=== PATIENT | female | born 1930 | race Caucasian/White ===

== ENCOUNTER 2018-11-26 15:39 | Emergency (ER) | payer MEDICARE, OTHER ==
[~2018-11-26] VITALS: Ht 167.6 cm; Wt 77.1 kg
[~2018-11-26 15:39] MED LIST: ASPI325B; ATEN50 PO; BENADRYL; CEFD300 PO; DOXY100 PO; LOSARTAN-HCTZ1 EAC1 PO; LOSHYD; LOVA40; METF500C PO; METF850; METO25ER PO; METO50ER; MINERAL; MINOXIDIL 5%; NAPR220; NEBI10 PO; NITR.4SL SL; ROBITUSSIN COUGH; TOCO400; TORSE20 PO; [UNRECOGNIZED DRUG - OTHER]; [UNRECOGNIZED DRUG - REMARK]
[2018-11-26] MEDS ORDERED: Cleocin HCl300 MG PO (16:52)
[2018-11-26] MEDS ORDERED: Percocet 5-3251 EACH PO (16:52)
== END 2018-11-26 17:25 | disposition home or self-care (01) ==
LOC: ER 15:39
DX: K04.7 Periapical abscess without sinus (principal); Z88.0 Allergy status to penicillin; Z88.8 Allergy status to other drugs, medicaments and biological substances; Z79.899 Other long term (current) drug therapy; Z79.84 Long term (current) use of oral hypoglycemic drugs; I10 Essential (primary) hypertension; E11.9 Type 2 diabetes mellitus without complications; F32.9 Major depressive disorder, single episode, unspecified; Z85.3 Personal history of malignant neoplasm of breast
CPT/HCPCS: 99283

== ENCOUNTER 2018-11-27 00:48 | Inpatient (IN) | payer MEDICARE, OTHER ==
[~2018-11-27] VITALS: Ht 167.6 cm; Wt 78.1 kg
[~2018-11-27 00:48] MED LIST changes: +Cleocin HCl300 MG PO; +Percocet 5-3251 EACH PO
[2018-11-27 02:54] LABS: Source, Urine Catheter
[2018-11-27 02:57] LABS: BASOPHILS ABSOLUTE AUTO 0.06 K/mm3 (0.00-0.23); BASOPHILS PERCENT AUTO 1 % (0-2); EOSINOPHILS ABSOLUTE AUTO 0.03 K/mm3 (0.00-0.68); EOSINOPHILS PERCENT AUTO 0 % (0-6); Hematocrit 38.5 % (33.0-51.0); Hemoglobin 12.6 g/dL (11.5-16.0); IMMATURE GRAN ABSOLUTE AUTO 0.05 K/mm3 (0.00-0.10); IMMATURE GRAN PERCENT AUTO 0 % (0-1); LYMPHOCYTES ABSOLUTE AUTO 0.73 K/mm3 (0.84-5.20); LYMPHOCYTES PERCENT AUTO 6 % (21-46); MONOCYTES ABSOLUTE AUTO 1.24 K/mm3 (0.16-1.47); MONOCYTES PERCENT AUTO 10 % (4-13); Mean Corpuscular HGB 29.4 pg (26.0-34.0); Mean Corpuscular HGB Conc 32.7 g/dL (31.5-36.5); Mean Corpuscular Volume 90 fL (80-100); Mean Platelet Volume 10.3 fL (9.1-12.4); NEUTROPHILS ABSOLUTE AUTO 10.23 K/mm3 (1.96-9.15); NEUTROPHILS PERCENT AUTO 83 % (41-73); Platelet Count 287 K/mm3 (150-400); RDW Coefficient Variation 14.1 % (11.7-14.2); RDW Standard Deviation 45.9 fL (35.1-46.3); Red Blood Cell Count 4.28 M/mm3 (3.80-5.20); White Blood Cell Count 12.34 K/mm3 (4.00-11.30)
[2018-11-27 03:04] LABS: Bilirubin, Urine Neg (Neg); Blood, Urine 2+ (Neg); Glucose Qualitative, Urine Neg (Neg); Ketones, Urine 1+ (Neg); Leukocyte Esterase, Urine 3+ (Neg); Nitrite, Urine Pos (Neg); Protein, Urine 2+ (Neg); Specific Gravity, Urine 1.015 (1.003-1.022); Urobilinogen, Urine NORM (Normal); pH, Urine 6.5 (5.0-8.0)
[2018-11-27 03:16] LABS: Appearance, Urine Hazy (Clear); Bacteria Many /hpf; Color, Urine Yellow (P-Yellow); Red Blood Cells, Urine 0-2 /hpf (0-2); Squamous Epithelial Cells Not Seen /hpf (Few); White Blood Cells, Urine TNTC /hpf (0-5)
[2018-11-27 03:19] LABS: Alanine Aminotransfer (ALT/SGP 14 U/L (12-78); Albumin, Blood 3.3 g/dL (3.4-5.0); Albumin/Globulin Ratio 0.7 (0.8-1.8); Alk Phos 120 U/L (50-136); Anion Gap 9 mmol/L (6-16); Aspartate Aminotrans (AST/SGOT 19 U/L (12-37); Bilirubin, Total 0.5 mg/dL (0.1-1.0); Blood Urea Nitrogen 19 mg/dL (8-24); Bun/Creatinine Ratio 23.8 (12.0-20.0); CO2, Blood 26 mmol/L (21-32); Calcium, Blood 9.1 mg/dL (8.5-10.1); Chloride, Blood 100 mmol/L (98-108); Globulin, Blood 4.7 g/dL (2.2-4.0); Glomerular Filtration Rate >60 (60-); Glucose, Blood 211 mg/dL (70-99); Potassium, Blood 4.1 mmol/L (3.5-5.5); Sodium, Blood 135 mmol/L (136-145)
--- NOTE | 2018-11-27 04:55 | NUR ---
ASSUMING CARE OF PT AT THIS TIME. PT REPORT RECEIVED VIA TELEPHONE WITH OFFGOING ED NURSE, MER STANFORD. WAITING FOR PT TRANSFER FROM ED TO ICU AT THIS TIME.
--- NOTE | 2018-11-27 05:00 | NUR ---
DR. GAMINO CALLED DR. GAMINO AT THIS TIME. DR. GAMINO CHANGED BENADRYL ORDERD FROM PRN TO SCHEDULED Q8 HR. DR. GAMINO ALSO ORDERED VAP PROTOCOL.
[2018-11-27 05:05] LABS: Hematocrit 37.9 % (33.0-51.0); Hemoglobin 12.7 g/dL (11.5-16.0); Mean Corpuscular HGB 28.9 pg (26.0-34.0); Mean Corpuscular HGB Conc 33.5 g/dL (31.5-36.5); Mean Platelet Volume 9.6 fL (9.1-12.4); Platelet Count 252 K/mm3 (150-400); RDW Coefficient Variation 13.9 % (11.7-14.2); RDW Standard Deviation 43.3 fL (35.1-46.3)
--- NOTE | 2018-11-27 05:20 | NUR ---
PT TRANSFERRED FROM ED TO ICU AT THIS TIME.
[2018-11-27 05:23] LABS: Mean Corpuscular Volume 86 fL (80-100)
[2018-11-27 05:30] LABS: Alanine Aminotransfer (ALT/SGP 18 U/L (12-78); Albumin, Blood 3.2 g/dL (3.4-5.0); Albumin/Globulin Ratio 0.7 (0.8-1.8); Alk Phos 120 U/L (50-136); Anion Gap 12 mmol/L (6-16); Aspartate Aminotrans (AST/SGOT 22 U/L (12-37); Blood Urea Nitrogen 15 mg/dL (8-24); Bun/Creatinine Ratio 21.4 (12.0-20.0); CO2, Blood 20 mmol/L (21-32); Chloride, Blood 104 mmol/L (98-108); Globulin, Blood 4.6 g/dL (2.2-4.0); Glomerular Filtration Rate >60 (60-); Glucose, Blood 272 mg/dL (70-99); Potassium, Blood 3.8 mmol/L (3.5-5.5); Sodium, Blood 136 mmol/L (136-145); Total Protein, Blood 7.8 g/dL (6.4-8.2)
--- NOTE | 2018-11-27 07:00 | NUR ---
ASSESSMENT / TRANSFER OF CARE PT TRANSFERRED FROM ED TO ICU AT 0520 THIS AM. PT AGITATED WITH DECREASED SEDATION, PULLING AT RESTRAINTS WITH DECREASED SEDATION, RESPONDS TO VERBAL AND PAINFUL STIMULI, SPONT OPENS EYES, DOES NOT FOLLOW COMMANDS, DOES NOT NOD HEAD Y/N TO QUESTIONS. FAUSTINO SENSATION. PT LINK. NO WEAKNESS NOTED. NORMAL STRENGTH. ASSISTED WITH Q2 HR TURNS AND ADL'S. OCC S/SX OF PAIN/DISCOMFORT NOTED (FACIAL GRIMACING, RESTLNESSNESS, AND BRACING NOTED). DR. GAMINO IN ICU THIS AM. DR. GAMINO ORDERED FENT PRN. ADMINSITERED FENT PER PHYSICIAN'S ORDER / UTILIZED NONPHARM METHODS. LUNGS COARSE, LOWER LOBES DIMINISHED. VENT SETTINGS: AC 16, TV 400, PEEP 5, FIO2 35%. RR 16 TO 30'S. OXY SAT >90%. CHAYA RT AND DEJAH RT ADVNACED 7.0 ETT TO 24 CM. SUCTION VIA ETT: SCANT AMOUNTS OF THIN CLEAR SECRETIONS. LARGE AMOUNTS OF ORAL SECRETIONS (THIN CLEAR SECRETIONS). AFEBRILE. NSR TO ST WITH OCC PVC'S. HR 70'S TO 100'S. BP STABLE - SEE VS FS. INCREASED HR, BP, AND RR NOTED WITH DECREASED SEDATION AND AGITATON. ACTIVE BT X4 QUADRANTS. ABD SOFT, NONTENDER, MOD DIST. OG IN PLACE TO LIS: NO OUTPUT. F/C - CLEAR YELLOW URINE NOTED. PIV X1. SECOND PIV NOT PATENT THIS AM. PROPOFOL DROP AT 40 MCG/KG/MIN - WILL TITRATE TO EFFECT. NS AT 75 ML/HR. CHEMBG Q6 HR AND ADMINSITERED INSULIN PER PHYSICIAN'S ORDER. PT REPORT PROVIDED TO ONCOMING NURSELUZ RN.
--- NOTE | 2018-11-27 07:17 | NUR ---
ASSUMED CARE REPORT FROM ABDOULAYE BERMUDEZ. PATIENT INTUBATED, VENTILATED AND RESTRAINED. SEDATED ON PROPOFOL AT 40 MCG/KG/MIN
--- NOTE | 2018-11-27 09:35 | NUR ---
MD VISIT DR. VELAZCO IN
--- NOTE | 2018-11-27 10:39 | NUR ---
PATIENT AWAKE, OBEYS COMMANDS. AT BEDSIDE. PLACED ON SPONTANEOUS BY RT. JUJU
--- NOTE | 2018-11-27 10:49 | NUR ---
PATIENT EXTUBATED AT 1050. 2 L NC. BIOX 100%
--- NOTE | 2018-11-27 11:09 | NUR ---
MD VISIT DR. ALTMAN IN. ADVANCE DIET TOLERATED. POSSIBLE STATUS CHANGE TO PCU THIS AFTERNOON
--- NOTE | 2018-11-27 11:40 | NUR ---
DR. ALTMAN CALLED TO ASK IF PATIENT GOT LEVAQUIN AND TO ASK DR. VELAZCO IF IT CAN BE CONTINUED FOR UTI
--- NOTE | 2018-11-27 16:45 | NUR ---
RECEIVED REPORT FROM ABDOULAYE ESCOBAR, AND ASSUMED CARE OF PT.
--- NOTE | 2018-11-27 17:16 | NUR ---
PATIENT USED HER CALL LIGHT TO SAY SHE HAD A BLEEDING PROBLEM. SHE HAD PULLED HER PIV LEFT HAND AND LARGE PUDDLE OF BLOOD WELL HEMATOMA. PRESSURE WRAP APPLIED AND HAND ELEVATED. ASSISTED BY ABDOULAYE DIAZ AND AUGIE.
--- NOTE | 2018-11-27 17:22 | NUR ---
Mrs. Lombardi is a retired [employer], who was talkative and surprisingly energetic for someone who was extubated just hours earlier. She spoke about her life's journey to the [facility] with great patricia. She has traveled the world and expressed deep gratitude for God's love. We had a melody rapport and she was a pleasure to visit. No fears or concerns presented. She has a loving, supportive family. We prayed together "for peace in the world" at her request. [employer] Loss Inspector services will remain available.
--- NOTE | 2018-11-27 18:44 | NUR ---
NURSING SUMMARY ALERT AND ORIENTED WITH INTERMITTENT MILD CONFUSION. SR - ST ON MONITOR WITH PVC'S, BIGEMINY, HR 90'S - 103, MILD HYPERTENSION. RECEIVES ROUTINE IV BENADRYL. EXTUBATED TODAY AT 1050, C/O MILD COUGHING BUT DENIES SOB OR DIFFICULTY BREATHING. MAC DISCONTINUED AT 1430, VOIDED ONCE SINCE REMOVAL. PT STATES SHE IS INCONTINENT/DRIBBLES AT TIMES, OFFERRED ATTENDS, CHURN TENDER WAS GOING TO HELP HER PUT ONE ON. PT PULLED OUT THE IV SHE HAD IN HER LEFT HAND. IT BLED AND SHE HAS A LARGE BRUISE, HELD PRESSURE TO STOP THE BLEEDING. TYPICALLY CALLS APPROPRIATELY FOR ASSISTANCE. USES A WALKER TO GET TO THE BATHROOM. TOLERATING A FULL LIQUID DIET, BLOOD SUGAR WAS 312 BEFORE DINNER. RIGHT UPPER ARM SALINE LOCK.
[2018-11-28 04:12] LABS: BASOPHILS ABSOLUTE AUTO 0.02 K/mm3 (0.00-0.23); BASOPHILS PERCENT AUTO 0 % (0-2); EOSINOPHILS PERCENT AUTO 0 % (0-6); Hematocrit 36.1 % (33.0-51.0); Hemoglobin 11.7 g/dL (11.5-16.0); IMMATURE GRAN ABSOLUTE AUTO 0.09 K/mm3 (0.00-0.10); IMMATURE GRAN PERCENT AUTO 1 % (0-1); LYMPHOCYTES ABSOLUTE AUTO 0.75 K/mm3 (0.84-5.20); LYMPHOCYTES PERCENT AUTO 5 % (21-46); MONOCYTES ABSOLUTE AUTO 1.09 K/mm3 (0.16-1.47); MONOCYTES PERCENT AUTO 7 % (4-13); Mean Corpuscular HGB Conc 32.4 g/dL (31.5-36.5); Mean Platelet Volume 10.3 fL (9.1-12.4); NEUTROPHILS ABSOLUTE AUTO 14.24 K/mm3 (1.96-9.15); NEUTROPHILS PERCENT AUTO 88 % (41-73); Platelet Count 288 K/mm3 (150-400); RDW Coefficient Variation 14.1 % (11.7-14.2); RDW Standard Deviation 46.5 fL (35.1-46.3); Red Blood Cell Count 4.03 M/mm3 (3.80-5.20); White Blood Cell Count 16.19 K/mm3 (4.00-11.30)
[2018-11-28 04:13] LABS: Mean Corpuscular Volume 90 fL (80-100)
[2018-11-28 04:44] LABS: Albumin, Blood 2.8 g/dL (3.4-5.0); Anion Gap 10 mmol/L (6-16); Blood Urea Nitrogen 21 mg/dL (8-24); Bun/Creatinine Ratio 25.8 (12.0-20.0); CO2, Blood 22 mmol/L (21-32); Chloride, Blood 109 mmol/L (98-108); Creatinine, Blood 0.82 mg/dL (0.40-1.00); Glomerular Filtration Rate >60 (60-); Glucose, Blood 176 mg/dL (70-99); Phosphorus, Blood 2.1 mg/dL (2.5-4.9); Potassium, Blood 3.3 mmol/L (3.5-5.5); Sodium, Blood 141 mmol/L (136-145)
--- NOTE | 2018-11-28 08:45 | NUR ---
[id number]: PT ALERT, ORIENT TO SELF, EVENT OF ANGIOEDEMA. UNABLE TO STATE SHE'S IN HOSPITAL, MONTH OR DAY. TONGUE APPEARS NL, PT DENIES DIFFICULTY SPEAKIN SWALLOWING OR BREATHING. MONOTOR SR-ST, OCC TO FREQ PVC, 3BEATS. PT RECOGNIZES INTERACTS W/ FAMILY, WONDERS WHY SHE CAN'T GO HOME. FREQUENT REORIENTATION, REASSURANCE. 2400: CALL HECIEVED FROM DR WELLS____ RE INSULIN COVERAGE, OTHE ORDERS. 6 ADD UINTS GIVEN TO COVER CBG 298, SLIDING SCALE MODIFIED. PT USES CALL LIGHT APPROP, DOES NOT ATTEMPT TO GET OUT OF BED BY SELF, BUT LEANS/ LUNGES IF ITEMS LEFT OUTSIDE HER REACH. SLEPT AT SORT INTERVALS, SOMETIMES OVERHEARD TALKING TO SELF. INSISTS CAT (HOME PET) IN ROOM W/ HER. UP W/ ASSIST TO BSC, VOIDING SM AMTS. LESS CONFUSED IN A.M.
--- NOTE | 2018-11-28 11:42 | NUR ---
DR. ALTMAN AT BEDSIDE FOR EVALUATION.
--- NOTE | 2018-11-28 14:55 | NUR ---
DR. ALTMAN CALLED TO CHECK ON PT'S CONFUSION AND CHANGED STATUS TO MEDICAL WITHOUT TELE. PLACING NEW ORDERS FOR POTASSIUM REPLACEMENT, ADVISED OF LOW PHOSPHORUS AND THAT THE BENADRYL HAS ALREADY BEEN DC'D. STATED HE WOULD DECREASE PREDNISONE.
--- NOTE | 2018-11-28 17:00 | NUR ---
REPORT CALLED TO [facility]I [facility] RN, WHOM WILL ASSUME CARE WHEN PT TRANSFERS TO ROOM 353.
--- NOTE | 2018-11-28 17:14 | NUR ---
PT TRANSFERRED TO ROOM 353 VIA WHEELCHAIR ESCORTED BY BRIANNA.
--- NOTE | 2018-11-28 18:03 | NUR ---
PT TRANSFERED AND SETTLED INTO HER NEW ROOM. AOX3 AND VERY PLEASANT WITH CARE. PT SITTING EATING DINNER AT THIS TIME. NO DISTRESS NOTED.
--- NOTE | 2018-11-29 04:40 | NUR ---
SHIFT SUMMARY: PT IS ALERT AND ORIENTED WITH MINOR CONFUSION. PT IS A 1 PERSON ASSIST WITH THE FWW. PT IS CALM AND COOPERATIVE WITH CARE. FAMILY IN VISITING AT THE START OF SHIFT. PT SET OFF HER BED ALARM SEVERAL TIMES TO GO TO THE BATHROOM, SHE SLEPT MUCH OF THE NIGHT OTHERWISE. PT DENIES PAIN, NAUSEA, VOMITING, AND SOB. NO ACUTE CHANGES OR COMPLICATIONS THIS SHIFT. BED IN LOW POSITION, CALL LIGHT WITHIN REACH.
[2018-11-29 05:37] LABS: BASOPHILS ABSOLUTE AUTO 0.03 K/mm3 (0.00-0.23); BASOPHILS PERCENT AUTO 0 % (0-2); EOSINOPHILS PERCENT AUTO 0 % (0-6); Hematocrit 40.7 % (33.0-51.0); Hemoglobin 13.3 g/dL (11.5-16.0); IMMATURE GRAN ABSOLUTE AUTO 0.08 K/mm3 (0.00-0.10); IMMATURE GRAN PERCENT AUTO 0 % (0-1); LYMPHOCYTES ABSOLUTE AUTO 1.29 K/mm3 (0.84-5.20); LYMPHOCYTES PERCENT AUTO 6 % (21-46); MONOCYTES ABSOLUTE AUTO 1.41 K/mm3 (0.16-1.47); MONOCYTES PERCENT AUTO 7 % (4-13); Mean Corpuscular HGB Conc 32.7 g/dL (31.5-36.5); Mean Corpuscular Volume 89 fL (80-100); NEUTROPHILS ABSOLUTE AUTO 17.46 K/mm3 (1.96-9.15); NEUTROPHILS PERCENT AUTO 86 % (41-73); Platelet Count 393 K/mm3 (150-400); RDW Coefficient Variation 14.4 % (11.7-14.2); RDW Standard Deviation 46.2 fL (35.1-46.3); Red Blood Cell Count 4.59 M/mm3 (3.80-5.20); White Blood Cell Count 20.27 K/mm3 (4.00-11.30)
[2018-11-29 06:00] LABS: Albumin, Blood 3.3 g/dL (3.4-5.0); Anion Gap 11 mmol/L (6-16); Blood Urea Nitrogen 35 mg/dL (8-24); CO2, Blood 22 mmol/L (21-32); Calcium, Blood 9.5 mg/dL (8.5-10.1); Chloride, Blood 106 mmol/L (98-108); Creatinine, Blood 0.81 mg/dL (0.40-1.00); Glomerular Filtration Rate >60 (60-); Glucose, Blood 163 mg/dL (70-99); Potassium, Blood 3.5 mmol/L (3.5-5.5); Sodium, Blood 139 mmol/L (136-145)
[2018-11-29] MEDS ORDERED: FAMO20 PO (12:37)
[2018-11-29] MEDS ORDERED: Micro-K10 MEQ PO (12:38)
[2018-11-29] MEDS ORDERED: LEVFLO500 PO (12:38)
[2018-11-29] MEDS ORDERED: GLIP5ER PO (12:41)
--- NOTE | 2018-11-29 14:17 | NUR ---
CALLED DR ALTMAN FOR CLARIFICATION OF THE METOPROLOL ORDER. NEW ORDERS FOR METOPROLOL SUCCUNATE 25 MG PO DAILY, QTY 30.
--- NOTE | 2018-11-29 15:54 | NUR ---
DISCHARGE SUMMARY PATIENT A&O X4. DISCHARGE INFORMATION REVIEWED, PATIENT EDUCATION PROVIDED, AND MEDICATIONS FAXED TO [facility]. IV D/C, WNL. ALL PATIENT AND FAMILY QUESTIONS ANSWERED. ORTHOPAEDIC TECHNOLOGIST ESCORTED PATIENT OUT BY WHEELCHAIR, ALL BELONINGS IN HANDS. FAMILY AT HER SIDE.
== END 2018-11-29 13:53 | disposition home or self-care (01) | DRG 915 ==
LOC: ER 00:48 → ICUE 00:49 → ICUW 00:49 → ICUE 05:20 → MEDS 11-28 17:20 → ICUE 11-28 17:20 → MEDS 11-28 17:20 → ENPENDDIS 11-29 11:36 → MEDS 11-29 13:53
PROVIDERS: Emergency Medicine; Internal Medicine Critical Care Medicine; ADMIT Internal Medicine
PROC: 0CHY7BZ Insertion of Airway into Mouth and Throat, Via Natural or Artificial Opening (ICD-10-PCS; principal; 2018-11-28)
DX: T78.3XXA Angioneurotic edema, initial encounter (principal); J96.01 Acute respiratory failure with hypoxia; N39.0 Urinary tract infection, site not specified; T36.8X5A Adverse effect of other systemic antibiotics, initial encounter; Y92.009 Unspecified place in unspecified non-institutional (private) residence as the place of occurrence of the external cause; B96.89 Other specified bacterial agents as the cause of diseases classified elsewhere; E11.65 Type 2 diabetes mellitus with hyperglycemia; Z79.4 Long term (current) use of insulin; I10 Essential (primary) hypertension; E78.5 Hyperlipidemia, unspecified; K04.7 Periapical abscess without sinus
CPT/HCPCS: 31500; 31720; 36415; 51702; 71045; 80053; 80069; 81001; 82947; 85025; 85027; 87077; 87086; 87186; 94002; 94003; 96361-59; 96365-59; 96375-59; 99291-25; 99292; J0330; J1200; J1650; J1956; J2930; J3010; J7030

== ENCOUNTER 2019-01-19 02:46 | Emergency (ER) | payer MEDICARE, OTHER ==
[~2019-01-19] VITALS: Ht 162.6 cm; Wt 77.1 kg
[~2019-01-19 02:46] MED LIST changes: +FAMO20 PO; +GLIP5ER PO; +LEVFLO500 PO; +Micro-K10 MEQ PO
[2019-01-19] MEDS ORDERED: Doxycycline Hy100 MG PO (03:55)
== END 2019-01-19 04:08 | disposition home or self-care (01) ==
LOC: ER 02:46
DX: S61.452A Open bite of left hand, initial encounter (principal); E11.9 Type 2 diabetes mellitus without complications; I10 Essential (primary) hypertension; Z88.1 Allergy status to other antibiotic agents; Z88.0 Allergy status to penicillin; Z88.5 Allergy status to narcotic agent; Z88.8 Allergy status to other drugs, medicaments and biological substances; Z79.899 Other long term (current) drug therapy; Z79.84 Long term (current) use of oral hypoglycemic drugs; W55.01XA Bitten by cat, initial encounter
CPT/HCPCS: 99283